=== PATIENT | male | born 1975 | race Caucasian/White ===

== ENCOUNTER 2016-12-23 16:14 | Inpatient (IN) | payer BC ==
[~2016-12-23] VITALS: Ht 157.5 cm; Wt 97.1 kg
[2016-12-23 17:31] LABS: BASOPHIL % 0.9 % (0-2); PLATELET COUNT 276 x10^3mcL (130-400); RED CELL DISTRIBUTION WIDTH 14.1 % (11.5-14.5)
[2016-12-23 17:40] LABS: CARBON DIOXIDE 31.5 mmol/L (21-32); CHLORIDE SERUM 102 mmol/L (98-107); CREATININE SERUM 1.1 mg/dL (0.7-1.3); GFR1 > 60 mL/min; GLUCOSE SERUM 134 mg/dL (74-106); POTASSIUM SERUM 4.2 mmol/L (3.5-5.1); SODIUM SERUM 141 mmol/L (136-145)
[2016-12-23 17:44] LABS: ALKALINE PHOSPHATASE 95 U/L (46-116); ALT/SGPT 146 U/L (16-63); AMYLASE 58 U/L (25-115); AST/SGOT 40 U/L (15-37); BILIRUBIN TOTAL 0.6 mg/dL (0.20-1.00); LIPASE 104 IU/L (73-393); TOTAL PROTEIN, SERUM 7.8 g/dL (6.4-8.2)
[2016-12-23 22:41] LABS: MAGNESIUM 2.1 mg/dL (1.8-2.4); PHOSPHOROUS 2.8 mg/dL (2.5-4.9)
[2016-12-23 22:44] LABS: T3 TOTAL 1.04 ng/mL
[2016-12-23 22:45] VITALS: BP 155/101
[2016-12-23 22:47] LABS: CHOLESTEROL/HDL RATIO 4.1
[2016-12-23 23:21] LABS: FREE T4 0.92 ng/dL (0.76-1.46); T4(THYROXINE) 8.7 ug/dL (4.7-13.3)
[2016-12-24 03:38] LABS: microscopic required? NO
[2016-12-24 03:58] LABS: UA SPECIFIC GRAVITY <=1.005 (1.005-1.035); urine erythrocyte NEGATIVE (NEGATIVE)
[2016-12-24 04:13] LABS: AMPHETAMINE QUAL UR NONE DETECTED (NEG <=1000)
[2016-12-24 06:04] VITALS: BP 140/93
[2016-12-24 06:14] LABS: BASOPHIL % 0.3 % (0-2); PLATELET COUNT 274 x10^3mcL (130-400); RED CELL DISTRIBUTION WIDTH 14.1 % (11.5-14.5)
[2016-12-24 06:28] LABS: CALCIUM 8.2 mg/dL (8.5-10.1); CARBON DIOXIDE 27.4 mmol/L (21-32); CHLORIDE SERUM 105 mmol/L (98-107); GFR1 > 60 mL/min; GLUCOSE SERUM 97 mg/dL (74-106); MAGNESIUM 1.9 mg/dL (1.8-2.4); PHOSPHOROUS 2.5 mg/dL (2.5-4.9); POTASSIUM SERUM 3.4 mmol/L (3.5-5.1); SODIUM SERUM 141 mmol/L (136-145)
[2016-12-24 10:12] VITALS: BP 138/89
[2016-12-24] MEDS ORDERED: ZES10 PO (14:28)
[2016-12-24] MEDS ORDERED: LIPI10 PO (14:36)
[2016-12-24 14:53] VITALS: BP 127/72
[2016-12-24 14:57] VITALS: BP 127/72
[2016-12-24] MEDS ORDERED: ZOF4 PO (15:31)
== END 2016-12-24 16:17 | disposition home or self-care (01) | DRG 395 ==
LOC: ED 16:14 → DU 21:40
PROVIDERS: Emergency Medicine; ADMIT Family Medicine
DX: K92.9 Disease of digestive system, unspecified (principal); E86.0 Dehydration; F12.10 Cannabis abuse, uncomplicated; R73.03 Prediabetes; E87.6 Hypokalemia; E78.5 Hyperlipidemia, unspecified; E66.9 Obesity, unspecified; K21.9 Gastro-esophageal reflux disease without esophagitis; D72.829 Elevated white blood cell count, unspecified; I10 Essential (primary) hypertension; Z68.39 Body mass index [BMI] 39.0-39.9, adult; E78.00 Pure hypercholesterolemia, unspecified; E83.51 Hypocalcemia
CPT/HCPCS: 83880; 84439; 87046; 87046-59; J1885; J1956; J2270; J2405; J2550; J3010; J7030; Q0092

== ENCOUNTER 2017-02-25 10:20 | Emergency (ER) | payer BC ==
[~2017-02-25] VITALS: Ht 157.5 cm; Wt 98.6 kg
[~2017-02-25 10:20] MED LIST: LIPI10 PO; ZES10 PO; ZOF4 PO
[2017-02-25 11:41] VITALS: BP 162/86
== END 2017-02-25 11:41 | disposition home or self-care (01) ==
LOC: ED 10:20
DX: K64.9 Unspecified hemorrhoids (principal); I10 Essential (primary) hypertension; E78.00 Pure hypercholesterolemia, unspecified

== ENCOUNTER 2017-08-17 12:08 | Emergency (ER) | payer BC ==
[~2017-08-17] VITALS: Ht 157.5 cm; Wt 95.7 kg
[2017-08-17 12:19] VITALS: Ht 157.5 cm; Wt 95.7 kg
[2017-08-17 12:53] LABS: BASOPHIL % 0.5 % (0-2); PLATELET COUNT 292 x10^3mcL (130-400); RED CELL DISTRIBUTION WIDTH 13.9 % (11.5-14.5)
[2017-08-17 14:03] LABS: CALCIUM 8.6 mg/dL (8.5-10.1); CARBON DIOXIDE 24.5 mmol/L (21-32); CHLORIDE SERUM 108 mmol/L (98-107); CREATININE SERUM 1.1 mg/dL (0.7-1.3); GFR1 > 60 mL/min; GLUCOSE SERUM 106 mg/dL (74-106); SODIUM SERUM 144 mmol/L (136-145)
[2017-08-17 14:07] LABS: ALBUMIN 3.6 g/dL (3.4-5.0); ALKALINE PHOSPHATASE 101 U/L (46-116); ALT/SGPT 68 U/L (16-63); AST/SGOT 21 U/L (15-37); BILIRUBIN TOTAL 0.36 mg/dL (0.20-1.00); CHOLESTEROL 195 mg/dL (<200); HDL CHOLESTEROL 44 mg/dL (40-60); PHOSPHOROUS 3.4 mg/dL (2.5-4.9); TOTAL PROTEIN, SERUM 6.7 g/dL (6.4-8.2)
[2017-08-17 14:33] LABS: microscopic required? NO
[2017-08-17 15:04] LABS: UA SPECIFIC GRAVITY 1.025 (1.005-1.035); urine erythrocyte NEGATIVE (NEGATIVE)
[2017-08-17 15:18] LABS: AMPHETAMINE QUAL UR NONE DETECTED (NEG <=1000)
[2017-08-17 15:26] VITALS: BP 123/82
== END 2017-08-17 15:26 | disposition home or self-care (01) ==
LOC: ED 12:08
PROVIDERS: Emergency Medicine
DX: I16.0 Hypertensive urgency (principal); I10 Essential (primary) hypertension; E78.00 Pure hypercholesterolemia, unspecified; R10.9 Unspecified abdominal pain
CPT/HCPCS: 36415

== ENCOUNTER 2018-02-17 09:53 | Emergency (ER) | payer BC ==
[~2018-02-17] VITALS: Ht 157.5 cm; Wt 90.7 kg
[2018-02-17 10:01] VITALS: Ht 157.5 cm; Wt 90.7 kg
[2018-02-17 12:40] LABS: BASOPHIL % 0.6 % (0-2); PLATELET COUNT 289 x10^3mcL (130-400); RED CELL DISTRIBUTION WIDTH 14.5 % (11.5-14.5)
[2018-02-17 12:51] LABS: CARBON DIOXIDE 29.2 mmol/L (21-32); CHLORIDE SERUM 100 mmol/L (98-107); CREATININE SERUM 1.2 mg/dL (0.7-1.3); GFR1 > 60 mL/min; GLUCOSE SERUM 129 mg/dL (74-106); POTASSIUM SERUM 3.8 mmol/L (3.5-5.1); SODIUM SERUM 137 mmol/L (136-145)
[2018-02-17 12:55] LABS: ALBUMIN 4.3 g/dL (3.4-5.0); ALKALINE PHOSPHATASE 84 U/L (46-116); ALT/SGPT 55 U/L (16-63); AST/SGOT 16 U/L (15-37); BILIRUBIN TOTAL 0.8 mg/dL (0.20-1.00); LIPASE 96 IU/L (73-393)
[2018-02-17 13:06] LABS: TOTAL PROTEIN, SERUM 8.5 g/dL (6.4-8.2)
[2018-02-17 14:48] LABS: AMPHETAMINE QUAL UR NONE DETECTED (See below)
[2018-02-17 15:45] VITALS: BP 131/96
== END 2018-02-17 15:45 | disposition home or self-care (01) ==
LOC: ED 09:53
PROVIDERS: Emergency Medicine
DX: K20.9 Esophagitis, unspecified (principal); I10 Essential (primary) hypertension; E86.0 Dehydration; E78.00 Pure hypercholesterolemia, unspecified
CPT/HCPCS: 87046; 87046-59; J1630; J2060; J3490; J7030

== ENCOUNTER 2018-06-03 15:56 | Inpatient (IN) | payer BC | END 2018-06-05 15:15 | disposition home or self-care (01) | LOC: ED 15:56 → DU 06-05 15:15 → ED 15:56 → IC 21:33 → ED 15:56 → IC 20:46 → ED 15:56 → DU 06-04 13:38 → ED 15:56 → DU 06-04 13:38 → IC 20:46 ==